=== PATIENT | female | born 1930 | race Caucasian/White ===

== ENCOUNTER 2019-02-24 15:17 | Emergency (ER) | payer OTHER ==
[~2019-02-24] VITALS: Ht 149.9 cm; Wt 56.7 kg
[~2019-02-24 15:17] MED LIST: ARICEPT10 MG; ASA81 MG; CELEXA20 MG; COZAAR50 MG; LIPITOR40 MG; NAMENDA10 MG; PROCARDIA90 MG/BLIS
== END 2019-02-24 19:51 | disposition home or self-care (01) ==
LOC: ER 15:17
DX: J06.9 Acute upper respiratory infection, unspecified (principal)

== ENCOUNTER 2019-03-24 10:17 | Emergency (ER) | payer OTHER ==
[~2019-03-24] VITALS: Ht 152.4 cm; Wt 56.7 kg
== END 2019-03-24 16:33 ==
LOC: ER 10:17
DX: S42.252A Displaced fracture of greater tuberosity of left humerus, initial encounter for closed fracture (principal); S42.292A Other displaced fracture of upper end of left humerus, initial encounter for closed fracture; W18.09XA Striking against other object with subsequent fall, initial encounter; Y93.89 Activity, other specified; Y92.098 Other place in other non-institutional residence as the place of occurrence of the external cause; Y99.8 Other external cause status

== ENCOUNTER 2019-06-04 15:13 | Emergency (ER) | payer OTHER ==
[~2019-06-04] VITALS: Ht 149.9 cm; Wt 56.7 kg
[2019-06-04] MEDS ORDERED: TROKENDI XR25 MG (15:22)
== END 2019-06-04 22:17 | disposition home or self-care (01) ==
LOC: ER 15:13
DX: S00.83XA Contusion of other part of head, initial encounter (principal); S40.011A Contusion of right shoulder, initial encounter; W18.39XA Other fall on same level, initial encounter; Y93.89 Activity, other specified; Y92.89 Other specified places as the place of occurrence of the external cause; Y99.8 Other external cause status

== ENCOUNTER 2020-09-26 13:55 | Emergency (ER) | payer OTHER ==
[~2020-09-26] VITALS: Ht 149.9 cm; Wt 55.3 kg
[~2020-09-26 13:55] MED LIST changes: +TROKENDI XR25 MG
[2020-09-26] MEDS ORDERED: INDERAL LA80 MG (14:15)
[2020-09-26] MEDS ORDERED: ZOLOFT25 MG (14:16)
[2020-09-26] MEDS ORDERED: CLEOCIN HCL300 MG (14:22)
== END 2020-09-26 18:26 | disposition home or self-care (01) ==
LOC: ER 13:55
DX: L03.213 Periorbital cellulitis (principal)